=== PATIENT | female | born 1960 | race Caucasian/White ===

== ENCOUNTER 2019-02-14 01:12 | Emergency (ER) | payer OTHER ==
[2019-02-14] MEDS: IBUPROFEN 600 MG TAB PO (05:09)
== END 2019-02-14 07:33 | disposition home or self-care (01) ==
LOC: FTE 07:33
DX: S92.424A Nondisplaced fracture of distal phalanx of right great toe, initial encounter for closed fracture (principal); W20.8XXA Other cause of strike by thrown, projected or falling object, initial encounter; Y92.9 Unspecified place or not applicable
CPT/HCPCS: 73630; 99283-25